=== PATIENT | female | born 1965 | race Caucasian/White ===

== ENCOUNTER → 2018-06-17 | Outpatient (CLI) | payer BC ==
[~2018-06-17] MED LIST: AMBIEN 10MG10 MG PO; ASPIRIN 81M81 MG/TA2 PO; ATIVAN 1MG T1 MG/TAB PO; BENADRYL25 M2 PO; COUMADIN 2MG2 MG/TAB PO; COUMADIN 5MG5 MG/TAB PO; IMITREX50 MG PO; LASIX 40MG TABL40 MG PO; LISINOPRIL/HCTZ1 TAB PO; MICRO-K 10 EXT10 MEQ PO; MOBIC 7.5MG7.5 MG PO; NITROSTAT0.4 MG/TAB SL; NORCO 325 MG-51 TAB PO; NORCO 325 MG-7.1 TAB PO; NORVASC 5MG5 MG/TAB PO; PROAIR HFA0.09 MG/AC IH; PROTONIX 40MG T40 MG PO; ROXICODONE 55 MG/TAB PO; RT ADVAIR 228 DISKUS IH; TRANDATE 200MG200 MG PO; ZESTRIL 20MG TA20 MG PO
[2018-06-17 11:20] LABS: HEMOGLOBIN 11.5 g/dl (12.5-16.0); MEAN CELL VOLUME 92 fl (80.0-100.0); MEAN CORPUSCULAR HEMOGLOBIN 31 pg (27.0-31.0); MEAN CORPUSCULAR HGB CONC 33 g/dl (33.0-37.0); MEAN PLATELET VOLUME 10.7 fl (7.4-10.4); PLATELET COUNT 250 K/mm3 (130-400); RED BLOOD COUNT 3.77 M/mm3 (4.10-5.30); REDCELL DISTRIBUTION WIDTH-CV 14.1 % (11.5-14.5)
[2018-06-17 11:25] LABS: HEMATOCRIT 34.5 % (37.0-47.0)
[2018-06-17 11:50] LABS: ERYTHROCYTE SEDIMENTATION RATE 2 mm/hr (0-30)
== END ==
LOC: COL.LAB 10:55
PROVIDERS: Nurse Practitioner
DX: Z47.1 Aftercare following joint replacement surgery (principal); M25.561 Pain in right knee; Z96.651 Presence of right artificial knee joint

== ENCOUNTER → 2019-03-08 | Outpatient (CLI) | payer BC ==
[~2019-03-08] MED LIST changes: +COUMADIN 77.5 MG/TAB PO; +FLEXERIL 1010 MG/TAB PO; +NORMODYNE200 MG PO; +WELLBUTRIN XL150 MG PO
[2019-03-08 16:10] LABS: HEMATOCRIT 37.3 % (37.0-47.0); HEMOGLOBIN 12.5 g/dl (12.5-16.0); MEAN CELL VOLUME 91 fl (80.0-100.0); MEAN CORPUSCULAR HEMOGLOBIN 30 pg (27.0-31.0); MEAN CORPUSCULAR HGB CONC 34 g/dl (33.0-37.0); MEAN PLATELET VOLUME 10.3 fl (7.4-10.4); PLATELET COUNT 279 K/mm3 (130-400); RED BLOOD COUNT 4.11 M/mm3 (4.10-5.30); REDCELL DISTRIBUTION WIDTH-CV 14.5 % (11.5-14.5)
[2019-03-08 16:37] LABS: ERYTHROCYTE SEDIMENTATION RATE 6 mm/hr (0-30)
== END ==
LOC: COL.LAB 15:09
PROVIDERS: Orthopaedic Surgery
DX: Z98.890 Other specified postprocedural states (principal)

== ENCOUNTER 2019-03-17 05:42 | Day surgery (SDC) | payer BC ==
[~2019-03-17] VITALS: Ht 162.6 cm; Wt 103.2 kg
[2019-03-17] MEDS ORDERED: PROAIR HFA0.09 MG/AC IH (06:37)
[2019-03-17] MEDS ORDERED: MAXZIDE-25MG TA1 TAB PO (06:38)
[2019-03-17] MEDS ORDERED: ALDACTONE 25MG25 M1 PO (06:39)
[2019-03-17] MEDS ORDERED: LASIX 40MG TABL40 MG PO (06:40)
[2019-03-17] MEDS ORDERED: MOBIC15 MG PO (06:41)
[2019-03-17] MEDS ORDERED: PRILOSEC 20MG20 MG PO (06:42)
[2019-03-17] MEDS ORDERED: AMITRIPTYLINE H10 M1 PO (06:43)
[2019-03-17] MEDS ORDERED: NORVASC 5MG5 MG/TAB PO (06:43)
[2019-03-17] MEDS ORDERED: ASPIRIN 81M81 MG/TA2 PO (06:49)
[2019-03-17] MEDS ORDERED: ZYRTEC 10MG10 MG PO (06:50)
[2019-03-17 06:53] VITALS: BP 155/85; PULSE 75; TEMP 98
[2019-03-17 07:19] VITALS: BP 1219/69; PULSE 76
--- NOTE | 2019-03-17 07:19 | NUR ---
Patient returns to room 7 per cart from PACU and is awake and alert. Temp 97.6 and room air sats 96%. Ice on the right knee. IV fluids infusing and site is free of redness. Call light in reach and is sipping on juice. Denies pain or nausea. Allowed to rest.
[2019-03-17 07:34] VITALS: BP 135/82; PULSE 83
--- NOTE | 2019-03-17 07:34 | NUR ---
Resting and sipping on juice. Continues to deny pain or nausea.
[2019-03-17] MEDS ORDERED: NORCO 325 MG-7.1 TAB PO (07:35)
[2019-03-17 07:49] VITALS: BP 129/69; PULSE 71
--- NOTE | 2019-03-17 07:49 | NUR ---
Eating toast and sipping on juice. Room air sats 96%.
[2019-03-17 08:04] VITALS: BP 139/91; PULSE 77
--- NOTE | 2019-03-17 08:04 | NUR ---
Room air sats 100%. Continues to deny pain or nausea.
[2019-03-17 08:19] VITALS: BP 133/74; PULSE 83
--- NOTE | 2019-03-17 08:19 | NUR ---
Continues to sip on juice and eat toast. Room air sats 99%.
--- NOTE | 2019-03-17 08:25 | NUR ---
IV discontinued and assisted up to the bathroom with walker and gait is steady. Ice has been on the right knee. Voids and returns to room. Continues to deny pain or nausea.
--- NOTE | 2019-03-17 08:33 | NUR ---
Patient given dismissal instructions and voices understanding of these. Provided script for physical therapy and [place]. Instructed to continue to do gentle ROM to keep full extension and flexion of the right knee. Patient voices understanding of this.
--- NOTE | 2019-03-17 08:40 | NUR ---
Patient dismissed to home per private vehicle driven by friend with dismissal instructions in hand. Patient taken to the front door per wheelchair and assisted into car the RN.
== END 2019-03-17 08:40 | disposition home or self-care (01) ==
LOC: SDCO 05:42
DX: M25.661 Stiffness of right knee, not elsewhere classified (principal); I25.10 Atherosclerotic heart disease of native coronary artery without angina pectoris; I11.0 Hypertensive heart disease with heart failure; I50.9 Heart failure, unspecified; J44.9 Chronic obstructive pulmonary disease, unspecified; G47.33 Obstructive sleep apnea (adult) (pediatric); M19.90 Unspecified osteoarthritis, unspecified site; G43.909 Migraine, unspecified, not intractable, without status migrainosus; F32.9 Major depressive disorder, single episode, unspecified; F41.9 Anxiety disorder, unspecified; D64.9 Anemia, unspecified; Z79.82 Long term (current) use of aspirin; Z79.01 Long term (current) use of anticoagulants; Z96.651 Presence of right artificial knee joint; Z90.49 Acquired absence of other specified parts of digestive tract; Z90.710 Acquired absence of both cervix and uterus
CPT/HCPCS: J2704; J3010

== ENCOUNTER 2021-04-05 09:50 | Outpatient (CLI) | payer BC ==
[~2021-04-05] VITALS: Ht 162.6 cm; Wt 104.0 kg
[~2021-04-05 09:50] MED LIST changes: +ALDACTONE 25MG25 M1 PO; +AMITRIPTYLINE H10 M1 PO; +ASPIRIN E.C. 8181 MG PO; +MAXZIDE-25MG TA1 TAB PO; +MOBIC15 MG PO; +PRILOSEC 20MG20 MG PO; +ZYRTEC 10MG10 MG PO
[2021-04-05 10:16] VITALS: BP 165/92; PULSE 73
[2021-04-05] MEDS ORDERED: ZYBAN150 M1 (10:21)
[2021-04-05] MEDS ORDERED: FLEXERIL 1010 MG/TAB PO (10:22)
[2021-04-05] MEDS ORDERED: AMBIEN 10MG10 MG PO (10:23)
[2021-04-05] MEDS ORDERED: MINIPRESS2 MG (10:26)
[2021-04-05] MEDS ORDERED: ZANAFLEX CAPSULE4 MG PO (10:27)
[2021-04-05] MEDS ORDERED: ZOFRAN 4MG T4 MG/TAB PO (10:28)
[2021-04-05] MEDS ORDERED: AMITRIPTYLINE H10 M1 PO (10:28)
[2021-04-05] MEDS ORDERED: NEURONTIN300 MG/CAP PO (10:30)
[2021-04-05] MEDS ORDERED: PROTONIX 40MG T40 MG PO (10:31)
[2021-04-05] MEDS ORDERED: PRINZIDE 25 MG-1 TAB PO (10:32)
[2021-04-05] MEDS ORDERED: TRANDATE 200MG200 MG PO (10:32)
[2021-04-05 11:12] VITALS: BP 149/100; PULSE 85
[2021-04-05 11:15] VITALS: BP 153/92; PULSE 74
[2021-04-05 11:30] VITALS: BP 145/100; PULSE 80
[2021-04-05 11:38] LABS: GLUCOSE,CSF 56 mg/dL (40-70); TOTAL PROTEIN,CSF 37 mg/dL (15-45)
[2021-04-05 11:45] VITALS: BP 157/90; PULSE 83
[2021-04-05 12:00] VITALS: BP 155/90; PULSE 84
[2021-04-05 12:13] LABS: CSF APPEARANCE CLEAR; CSF COLOR COLORLESS; CSF MONONUCLEAR 100 % (70-100); CSF POLYMORPHONUCLEAR 0 % (0-6); CSF RBC < 1 /mm3 (0-0)
--- NOTE | 2021-04-05 12:20 | NUR ---
PT ESCORTED TO EXIT VIA WHEELCHAIR. WITH PATIENT. PT REPORTS TINGLING TO LEGS RESOLVED. MILD HEADACHE REPORTED. PUNCTURE SITE COVERED WITH CLEAN DRY AND INTACT BANDAID. PT IS AMB TO BATHROOM PRIOR TO HER DEPARTURE, GAIT IS STEADY. PT HAS SOME BASELINE HIP AND BACK PAIN THAT IS UNCHANGED. I REVIEWED DC INSTRUCTIONS WITH PT WHO VERBALIZED UNDERSTANDING. PT ENCOURAGED TO USE TYLENOL IF NEEDED FOR PAIN, AND TO CONTACT DR. GOMEZ WITH ANY QUESTIONS R/T THIS PROCEDURE.
[2021-04-10 12:39] LABS: CSF IGG/ALBUMIN 0.09 (<=0.21); CSF,IGG 1.2 mg/dL (<=8.1)
[2021-04-10 14:55] LABS: CSF OLIG BD INTERPRETATION 0 bands (<2); SE OLIGOCLONAL BANDING 0 bands (())
[2021-04-11 11:33] LABS: ALBUMUN SERUM 4500 mg/dL (()); CSF-IGG INDEX 0.43 (<=0.85); IGG,SERUM 931 mg/dL (()); IGG/ALBUMIN SERUM 0.21 (<=0.40)
== END 2021-04-05 12:37 | disposition home or self-care (01) ==
LOC: COL.RAD 09:50
PROVIDERS: Psychiatry & Neurology Neurology
DX: G37.9 Demyelinating disease of central nervous system, unspecified (principal); R51.9 Headache, unspecified